=== PATIENT | male | born 1985 | race African-American/Black ===

== ENCOUNTER 2017-01-04 20:36 | Emergency (ER) | payer OTHER ==
--- NOTE | ~2017-01-04 | CT52 ---
[facility] A Service of [facility] RADIOLOGY TEXT RESULTS PATIENT: VICTORIANO MACHADO LOCATION: SED : 81 UNIT #: [id number] AGE: [address]: Fermín Martinez SEX: M ORDER DR: [id number] [address] [address] [id number] E MR#: [id number] Acc #: [id number] NAME: VICTORIANO MACHADO : 1985 SEX: M STUDY DATE/TIME: 01/04/2017 20:13 UNIT: SED ROOM: STUDY DESCRIPTION: CT Cervical Spine Wo Cont Attending Physician: Fermín Martinez P.A.-C. Ordering Physician: Fermín Martinez P.A.-C. Primary Care Physician: Primary Care Physician No MEDICAL IMAGING REPORT This report is preliminary unless electronic signature is present. EXAM CT C-spine no contrast, 01/04/2017 INDICATION 31-year-old male complaining of left neck and shoulder pain over the past 3 months that is getting worse. No known injury. Left arm numbness. TECHNIQUE Noncontrast CT of the C-spine was performed with sagittal and coronal reformats. Compared with 02/01/2016. This CT exam was performed with one or more of the following radiation dose reduction techniques: automatic exposure control, adjustment of mA and/or kV according to patient size, and iterative reconstruction. FINDINGS CT C-SPINE: There is no acute fracture or malalignment. Dens and lateral masses are intact. There is nonspecific cervical straightening. No critical central canal or foraminal stenosis. Included lung apices demonstrate bleb formation in the lung apices, right greater than left and emphysema. Included thyroid unremarkable. IMPRESSION 1. No acute fracture, malalignment or significant degenerative change. No critical central canal or foraminal stenosis. If patient symptoms persist MRI could be performed on a nonemergent basis for further assessment. 2. Biapical bleb formation, right greater than left. Dictated by... [facility] A Service [facility] RADIOLOGY TEXT RESULTS PATIENT: VICTORIANO MACHADO [place] [facility] [place]IT #: [id number] AGE: [address]: Fermín Martinez PAC SEX: M ORDER DR: Yvon Campbell M.D. THIS IS AN ELECTRONICALLY VERIFIED REPORT Yvon Campbell M.D. at 01/05/2017 11:41 AM Richard TD: 01/05/2017 00:05 JOB #: [id number] MEDICAL IMAGING REPORT Page 1 of 1
[~2017-01-04 20:36] MED LIST: BENTYL10 MG PO; CIPRO PO; DOXYCYCLINE HY100 M1 PO; FLAGYL PO; NO MEDICATIONS; PHENERGAN25 MG PO; PREDNISONE PO; VISTARIL PO; ZOFRAN PO
== END 2017-01-04 21:24 | disposition home or self-care (01) ==
LOC: SED 20:36
DX: M54.12 Radiculopathy, cervical region (principal); F17.210 Nicotine dependence, cigarettes, uncomplicated
CPT/HCPCS: 72125; 99284